=== PATIENT | male | born 1955 | race Hispanic/Latino ===

== ENCOUNTER 2023-05-09 14:41 | Emergency (ER) | payer SELFPAY ==
[2023-05-09] MEDS ORDERED: EPINEPHrine 1 MG/10 ML SYR IV ONE (14:42)
[2023-05-09] MEDS ORDERED: ATROPINE SULF 1 MG/10 ML SYR IV ONE ×2 (14:42→14:54)
[2023-05-09] MEDS ORDERED: propofoL 1,000 MG/100 ML VIAL IV ONE (14:46)
[2023-05-09] MEDS ORDERED: TENECTEPLASE 50 MG/10 ML VIAL IV ONE (14:47)
[2023-05-09] MEDS ORDERED: LIDOCAINE 1% 20 ML MDV ONE (14:53)
[2023-05-09] MEDS ORDERED: HEPA 1000U/500MLS 0 UNIT/0 ML BAG IV ONE (14:53)
[2023-05-09] MEDS ORDERED: VERAPAMIL HCL 10 MG/4 ML VIAL IV ONE (14:54)
[2023-05-09] MEDS ORDERED: FENTANYL CITR 100 MCG/2 ML ONE (14:54)
[2023-05-09] MEDS ORDERED: MIDAZOLAM HCL 2 MG/2 ML INJ ONE (14:54)
[2023-05-09] MEDS ORDERED: TICAGRELOR 90 MG TABLET PO ONE (14:55)
[2023-05-09] MEDS ORDERED: NA CHLORIDE 0.9% 0 ML ONE (14:55)
[2023-05-09] MEDS ORDERED: HEPARIN 5000 UNIT/ML 1 ML VIAL ONE (14:55)
[2023-05-09] MEDS ORDERED: HEPARIN 10,000 UNIT/10 ML VIAL IV ONE (14:55)
[2023-05-09] MEDS ORDERED: ASPIRIN 325 MG TAB ONE (14:56)
[2023-05-09] MEDS ORDERED: CLOPIDOGREL 75 MG TABLET ONE (14:56)
--- NOTE | 2023-05-09 15:18 | ER ---
Nurse's Notes [facility] Name: Juventino Avendaño Age: 68 yrs Sex: Male : 1955 Arrival Date: 05/09/2023 Time: 14:41 Bed 4 Private MD: Diagnosis: ST elevation (STEMI) myocardial infarction of unspecified site;Cardiac arrest, cause unspecified Presentation: 05/09 14:42 Chief complaint: EMS states: FOUND DOWN AT WORK IN FULL CARDIOPULMONARY ARREST. Care bp prior to arrival: Assisted ventilation, CPR manually performed by EMS and is still in progress Placed on backboard. IV initiated. 18 GA, in the right antecubital area. Compressions began prior to arrival. 14:42 Method Of Arrival: EMS: [facility] bp 14:42 Acuity: JULI 1 bp Triage Assessment: 14:42 General: Appears UNRESPONSIVE. bp Historical: - Allergies: 15:51 No Known Allergies; bp - Unable to obtain history due to: altered mental status, unresponsive. Screenin:42 Abuse screen: Denies threats or abuse. Denies injuries from another. Nutritional bp screening: No deficits noted. Tuberculosis screening: No symptoms or risk factors identified. Assessment: 14:42 CPR assessment: unresponsive. Cardiac rhythm is PEA. General: FOUND DOWN BY SECURITY, bp UNKNOWN DOWNTIME. 14:44 Reassessment: 20 MG ETOMIDATE, 75 MG ROCURONIUM. ETT 7.5 \T\ 21. bp 14:47 Reassessment: STEMI NOTED ON EKG. bp 14:48 Reassessment: CPR. PEA ON DEFIB, EPI x1. bp 14:49 Reassessment: PEA. bp 14:50 Reassessment: BICARB x1. [facility]LAN WITH CARDIOLOGY CONTACTED. bp 14:51 Reassessment: PEA. bp 14:52 Reassessment: TNKASE 40MG IVP. 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 bp 14:53 Reassessment: EPI x1, BICARB x1, PEA. bp 14:55 Reassessment: ROSC. bp 14:58 Reassessment: PEA, EPI x1. bp 15:00 Reassessment: PEA. bp 15:01 Reassessment: BICARB x1, EPI x1. bp 15:02 Reassessment: PEA. bp 15:04 Reassessment: PEA, ATROPINE 1MG. bp 15:05 Reassessment: EPI x1. bp 15:06 Reassessment: PEA. bp 15:08 Reassessment: PEA. TIME OF . bp 15:25 Reassessment: [facility] CONTACTED. bp 15:50 Reassessment: BCSO AT B/S. bp 16:04 Reassessment: FAMILY NOTIFIED BY DR GOVEA. FAMILY ALLOWED TO B/S. bp Vital Signs: 14:42 Pulse 148; bp 14:42 PEA bp ED Course: 14:42 Patient arrived in ED. sb4 14:42 Patient has correct armband on for positive identification. bp 14:42 Inserted saline lock: 18 gauge in left antecubital area, using aseptic technique. bp 14:44 Assisted provider with intubation using 7.5 mm ETT via oral route. ET tube secured at bp 21cm at the gums. Intubated by Oli Govea MD. 14:45 Oli Govea MD is Attending Physician. rt 15:14 notified lj pd to notify manager validation to come to er. bd 15:17 Oli Govea MD is Pronouncing Provider. rt 15:25 Srinivasa Mnedoza, RN is Primary Nurse. bp 15:31 Triage completed. bp Administered Medications: No medications were administered Point of Care Testing: Blood Glucose: 14:42 Blood Glucose: 175 mg/dL; bp Ranges: Outcome: 15:15 Outcome Patient bp 15:15 Patient : Time of 15:08 Pronounced by Oli Govea MD 15:15 Condition: bp 18:03 Patient left the ED. bp Signatures: Sanam Mason bd Srinivasa Mendoza, RN RN Laureen Law, PAGiovannyC PAGiovannyC sb4 Oli Govea MD MD rt
--- NOTE | 2023-05-09 18:04 | EDPHYS ---
Physician Documentation [facility] Name: Juventino Avendaño Age: 68 yrs Sex: Male : 1955 Arrival Date: 05/09/2023 Time: 14:41 Bed 4 Private MD: ED Physician Oli Mayen HPI: 05/09 17:50 This 68 yrs old Male presents to ER via EMS with complaints of CPR. rt 17:50 Patient presents to the ED in cardiopulmonary arrest. Patient was reported at [place] [facility] [employer], reportedly he was found unresponsive. Is unclear how long he has been down for. 3 minutes of CPR was started, patient reportedly had ROSC at that time, still had agonal breaths, bagging was continued. Patient was brought to the ED for further evaluation. No further history could be obtained. Symptoms are severe in severity.. Historical: - Allergies: 15:51 No Known Allergies; bp - Unable to obtain history due to: altered mental status, unresponsive. ROS: 17:50 Unable to obtain ROS due to altered mental status, rt Exam: 17:50 Constitutional: The patient appears Unresponsive, agonal respirations rt 17:50 ENT: Dry mucous membranes, no blood in the oropharynx. 17:50 ECG was reviewed by the Attending Physician. 17:50 Respiratory: Agonal respirations, coarse breath sounds diffusely, Vital Signs: 14:42 Pulse 148; bp 14:42 PEA bp Procedures: 17:50 CPR: See CPR flow sheet. Initial patient assessment: unresponsive, agonal respirations, rt The presenting cardiac rhythm is V tach. Via ET tube, Compressions: began prior to arrival. Meds given: See Meds list. despite ED evaluation and treatment, the patient . CPR was stopped at 15:08. Intubation: Intubated orally using GlideScope, #4 with 7.5 mm ETT. was successful on first attempt. Ventilated with Ambu bag. Tube secured with tape Placement verified by CO2 detector with (+) color change, auscultating bilateral breath sounds, O2 saturation after procedure was 100 %. MDM: 14:45 Patient medically screened. rt 17:50 Differential diagnosis: Acute VT, pulmonary embolism, dysrhythmia, hyperkalemia, rt acidosis. Data reviewed: vital signs, nurses notes, lab test result(s), EKG, radiologic studies. Management of patient was discussed with the following: Water Pollution Specialist: Discussed with cardiology on-call, states that should we get a perfusing rhythm with stable blood pressures, will take to the Nutrition Representative. I considered the following discharge prescriptions or medication management in the emergency department Medications were administered in the Emergency Department. See MAR. ED course: Patient had episode of V. tach versus emergency department, CPR was initiated. ACLS medications were given, patient with STEMI on EKG, thrombolytics were given given cardiac arrest. This will treat a pulmonary embolism as patient has been etiology. Patient never had a shockable rhythm on pulse checks. CPR was performed, bedside ultrasound showed no cardiac activity, no pericardial effusion. Further resuscitative efforts were deemed to be futile. Time was called.. EC:50 Rate is 116 beats/min. Rhythm is regular, Accelerated junctional with No ectopy. Right rt axis deviation noted. QRS interval is normal. QT interval is normal. ST Segment is elevated in leads II, III, aVF, V4, V5, V6. Clinical impression: Acute VT. Interpreted by me. Administered Medications: No medications were administered Point of Care Testing: Blood Glucose: 14:42 Blood Glucose: 175 mg/dL; bp Ranges: Critical Glucose Levels:Adult <50 mg/dl or >400 mg/dl <40 mg/dl or >180 mg/dl Disposition: 18:16 Critical Care:. rt Disposition Summary: 05/09/23 15:18 Patient Notes: Location: [facility] rt Pronouncing Physician: Oli Mayen Time of : 15:08 05/09/2023 rt Diagnosis - ST elevation (STEMI) myocardial infarction of unspecified site rt - Cardiac arrest, cause unspecified rt Critical care time excluding procedures: 18:16 Critical care time: Bedside Care: 30 minutes, Consultation: 5 minutes. Total time: 35 rt minutes Signatures: Srinivasa Mendoza RN RN bp Oli Mayen MD MD rt
--- NOTE | 2023-05-10 17:51 | EKG ---
Test Date: 2023-05-09 Test Time: 14:44:21 Bark Skinner: BP MEASUREMENT RESULTS: Intervals: Rate: 116 RI: QRSD: 102 QT: 296 QTc: 411 [place]: P: RI: QRS: 206 T: 46 INTERPRETIVE STATEMENTS: Sinus tachycardia Right axis deviation Possible Lateral infarct Possible Inferior infarct ST elevation inferolateral leads, Acute MS Compared to ECG 03/01/2006 06:25:20 Right-axis deviation now present Myocardial infarct finding now present ST (T wave) deviation now present Sinus rhythm no longer present Electronically Signed On 05-10-23 17:50:22 PRICING COORDINATOR by Dionicio Pickett
== END 2023-05-09 18:03 | disposition expired ==
LOC: ER 14:41
DX: I21.3 ST elevation (STEMI) myocardial infarction of unspecified site (principal); I46.9 Cardiac arrest, cause unspecified
CPT/HCPCS: 31500; 92950; 93005; 99291; J0171; J0461; J1644; J2001; J2250; J2704; J3010; J3101; J7040